=== PATIENT | male | born 1935 | race Caucasian/White ===

== ENCOUNTER 2020-03-04 17:26 | Inpatient (IN) ==
[2020-03-04] MEDS ORDERED: HYDROmorphone 2 MG/1 ML VIAL IV STA (18:27)
[2020-03-04] MEDS ORDERED: SODIUM CHLORIDE 0.9% 500 ML IV STA (18:27)
[2020-03-04] MEDS ORDERED: ONDANSETRON 4 MG/2 ML VIAL IV STA (18:27)
[2020-03-04] MEDS ORDERED: KETOROLAC 30 MG/1 ML VIAL IV STA (18:27)
[2020-03-04 18:41] LABS: Basophils % 0.1 % (0.0-0.8); Eosinophils % 0.1 % (0.00-10.9); Hematocrit 42.5 VOL% (42.0-52.0); Hemoglobin 14.8 GM/DL (14.0-18.0); Immature Granulocytes % 0.7 %; Lymphocytes # 0.9 10*3/uL (1.4-4.0); Mean Corpuscular HGB Conc 34.8 GM/DL (32-36); Mean Corpuscular Volume 85.9 FL (87-102); Mean Platelet Volume 10.1 FL (9.6-12.0); Monocytes % 5.4 % (1.7-12.7); Neutrophils % 87.7 % (38.7-73.9); Platelet Count 225 T/CUMM (130-400); Red Blood Count 4.95 MC/CUMM (3.8-5.5); Red Cell Distribution Width 12.6 % (9.3-17.3); White Blood Count 14.9 T/CUMM (4-12)
[2020-03-04 19:03] LABS: Albumin 4.3 G/DL (3.4-5.0); Bilirubin,Total 0.6 MG/DL (0.2-1.0); Calcium 9.6 MG/DL (8.5-10.1); Osmolality,Calculated 274.1 MOS/KG (273-304); Total Protein 7.7 G/DL (6.4-8.3)
[2020-03-04 19:29] LABS: PT Patient Result 10.9 SECS (9.8-11.9)
[2020-03-04 20:20] LABS: Bilirubin,Urine Negative (Negative); Blood, Urine Negative (Negative); Glucose,Urine (UA) Negative (Negative); Ketones,Urine 5 mg/dL (Negative); Mucus,Urine Occasional /LPF (Occasional); Nitrite,Urine Negative (Negative); Protein,Urine 30 MG/DL; RBC,Urine 2 /HPF (0-4); Urine Appearance CLEAR (Clear); Urine Color Yellow (Yellow); Urine Specific Gravity 1.014 (1.001-1.035); Urine Urobilinogen < 2.0 EU/DL (0.2-1.0)
[2020-03-04] MEDS ORDERED: ACETAMINOPHEN 325 MG TABLET PO PRN (22:19)
[2020-03-04] MEDS ORDERED: HYDROmorphone 2 MG/1 ML VIAL IV PRN (22:19)
[2020-03-04] MEDS ORDERED: ONDANSETRON 4 MG/2 ML VIAL IV PRN (22:19)
[2020-03-04] MEDS: SODIUM CHLORIDE 0.9% 1,000 ML IV SCH (22:45)
[2020-03-05] MEDS ORDERED: ceFAZolin 2,000 MG in PREMIX 1 EACH IV ONE ×2 (06:00→07:05)
[2020-03-05 06:01] LABS: Basophils % 0.2 % (0.0-0.8); Eosinophils % 0.1 % (0.00-10.9); Hemoglobin 13.5 GM/DL (14.0-18.0); Immature Granulocytes % 0.4 %; Immature Granulocytes Absolute 0.05 #; Lymphocytes # 1.5 10*3/uL (1.4-4.0); Lymphocytes % 12.7 % (21.2-54.2); Mean Corpuscular HGB Conc 34.6 GM/DL (32-36); Mean Corpuscular Volume 86.7 FL (87-102); Mean Platelet Volume 10.6 FL (9.6-12.0); Monocytes % 10.7 % (1.7-12.7); Neutrophils % 75.9 % (38.7-73.9); Platelet Count 205 T/CUMM (130-400); Red Cell Distribution Width 12.7 % (9.3-17.3); White Blood Count 11.5 T/CUMM (4-12)
[2020-03-05 06:29] LABS: Albumin 3.7 G/DL (3.4-5.0); Bilirubin,Total 1.1 MG/DL (0.2-1.0); Calcium 8.9 MG/DL (8.5-10.1); Osmolality,Calculated 271.8 MOS/KG (273-304); Total Protein 6.5 G/DL (6.4-8.3)
[2020-03-05] MEDS ORDERED: amLODIPine 5 MG TABLET PO ONE (07:32)
[2020-03-05] MEDS ORDERED: ENALAPRIL 10 MG TABLET PO ONE (07:33)
[2020-03-05] MEDS ORDERED: ENOXAPARIN 40 MG/0.4 ML SYRINGE SUBCUT SCH (08:00)
[2020-03-05] MEDS ORDERED: OLOPATADINE 0.7% BOTH EYES SCH (09:00)
[2020-03-05] MEDS ORDERED: ROPIVACAINE 0.5% 30 ML VIAL ONE (09:38)
[2020-03-05] MEDS ORDERED: MORPHINE 4 MG/1 ML VIAL IV PRN ×2 (09:42→10:00)
[2020-03-05] MEDS ORDERED: LACTULOSE 20 GM/30 ML UDCUP PO PRN (09:42)
[2020-03-05] MEDS ORDERED: BISACODYL 10 MG SUPP RECTAL PRN (09:42)
[2020-03-05] MEDS ORDERED: diphenhydrAMINE CAP 25 MG CAPSULE PO PRN (09:42)
[2020-03-05] MEDS ORDERED: TEMAZEPAM 7.5 MG CAPSULE PO PRN (09:42)
[2020-03-05] MEDS ORDERED: PROMETHAZINE 25 MG/1 ML VIAL IM PRN (09:42)
[2020-03-05] MEDS ORDERED: MIDAZOLAM 2 MG/2 ML VIAL ONE (10:11)
[2020-03-05] MEDS ORDERED: LIDOCAINE 2% 5 ML VIAL ONE (10:13)
[2020-03-05] MEDS ORDERED: PHENYLEPHRINE DRIP 20 MG/250 ML PREMIX IV ONE (10:13)
[2020-03-05] MEDS ORDERED: propofoL 200 MG/20 ML VIAL IV ONE (10:13)
[2020-03-05] MEDS ORDERED: KETAMINE 500 MG/10 ML VIAL ONE (10:14)
[2020-03-05] MEDS ORDERED: fentaNYL 100 MCG/2 ML VIAL ONE (10:14)
[2020-03-05] MEDS ORDERED: ePHEDrine 50 MG/ML VIAL ONE (10:15)
[2020-03-05] MEDS ORDERED: ACETAMINOPHEN 1,000 MG/100 ML VIAL IV ONE (10:15)
[2020-03-05] MEDS ORDERED: ONDANSETRON 4 MG/2 ML VIAL ONE (10:15)
[2020-03-05] MEDS ORDERED: LACTATED RINGERS 1,000 ML IV ONE (10:15)
[2020-03-05] MEDS ORDERED: TRANEXAMIC ACID 1,000 MG/10 ML VIAL ONE (10:15)
[2020-03-05] MEDS ORDERED: KETOROLAC 30 MG/1 ML VIAL ONE (10:15)
[2020-03-05 10:32] LABS: Bilirubin,Urine Negative (Negative); Blood, Urine Small mg/dL (Negative); Glucose,Urine (UA) Negative (Negative); Hyaline Casts,Urine 1 /LPF (0-3); Ketones,Urine 5 mg/dL (Negative); Mucus,Urine Occasional /LPF (Occasional); Nitrite,Urine Negative (Negative); Protein,Urine Negative; RBC,Urine 16 /HPF (0-4); Squamous Epithelial Cell,Urine Occasional /HPF (0-10); Urine Appearance CLEAR (Clear); Urine Color Yellow (Yellow); Urine Urobilinogen < 2.0 EU/DL (0.2-1.0); WBC,Urine 3 /HPF (0-6)
[2020-03-05] MEDS: BRIMONIDINE 0.1% OPH SOLN 5 ML BOTTLE BOTH EYES SCH ×2 (13:01→21:40)
[2020-03-05] MEDS: SODIUM CHLORIDE 0.9% 1,000 ML IV SCH ×2 (13:01→18:10)
[2020-03-05] MEDS: ENALAPRIL 10 MG TABLET PO SCH ×2 (13:02→13:21)
[2020-03-05] MEDS: ASPIRIN EC 81 MG TABLET PO SCH (13:02)
[2020-03-05] MEDS: amLODIPine 5 MG TABLET PO SCH (13:20)
[2020-03-05] MEDS: ceFAZolin 2,000 MG in PREMIX 1 EACH IV SCH (17:07)
[2020-03-05] MEDS ORDERED: BRIMONIDINE 0.1% OPH SOLN 5 ML BOTTLE BOTH EYES SCH (21:00)
[2020-03-05] MEDS: LATANOPROST 0.005% OPH SOLN 2.5 ML BOTTLE BOTH EYES SCH (21:32)
[2020-03-05] MEDS: DOCUSATE SODIUM 100 MG CAPSULE PO SCH (21:33)
[2020-03-06] MEDS: ceFAZolin 2,000 MG in PREMIX 1 EACH IV SCH (01:57)
[2020-03-06 06:24] LABS: Basophils % 0.2 % (0.0-0.8); Eosinophils % 0.3 % (0.00-10.9); Hematocrit 35.9 VOL% (42.0-52.0); Hemoglobin 12.3 GM/DL (14.0-18.0); Immature Granulocytes % 0.5 %; Immature Granulocytes Absolute 0.06 #; Lymphocytes # 1.3 10*3/uL (1.4-4.0); Lymphocytes % 10.5 % (21.2-54.2); Mean Corpuscular HGB Conc 34.3 GM/DL (32-36); Mean Corpuscular Volume 87.3 FL (87-102); Mean Platelet Volume 10.2 FL (9.6-12.0); Neutrophils % 77.5 % (38.7-73.9); Platelet Count 167 T/CUMM (130-400); Red Blood Count 4.11 MC/CUMM (3.8-5.5); Red Cell Distribution Width 12.8 % (9.3-17.3); White Blood Count 12.3 T/CUMM (4-12)
[2020-03-06 06:38] LABS: Calcium 8.3 MG/DL (8.5-10.1); Osmolality,Calculated 267.2 MOS/KG (273-304)
[2020-03-06] MEDS: BRIMONIDINE 0.1% OPH SOLN 5 ML BOTTLE BOTH EYES SCH ×2 (10:56→23:04)
[2020-03-06] MEDS: ENALAPRIL 10 MG TABLET PO SCH (10:57)
[2020-03-06] MEDS: amLODIPine 5 MG TABLET PO SCH (10:57)
[2020-03-06] MEDS: ASPIRIN EC 81 MG TABLET PO SCH (10:57)
[2020-03-06] MEDS: DOCUSATE SODIUM 100 MG CAPSULE PO SCH ×2 (10:58→21:18)
[2020-03-06] MEDS: SODIUM CHLORIDE 0.9% 1,000 ML IV SCH (14:18)
[2020-03-06] MEDS: LATANOPROST 0.005% OPH SOLN 2.5 ML BOTTLE BOTH EYES SCH (21:17)
[2020-03-06] MEDS: FONDAPARINUX 2.5 MG/0.5 ML SYRINGE SUBCUT SCH (21:18)
[2020-03-07 05:22] LABS: Basophils % 0.3 % (0.0-0.8); Eosinophils # 0.2 10*3/uL (0.0-0.87); Eosinophils % 1.8 % (0.00-10.9); Hematocrit 34.4 VOL% (42.0-52.0); Hemoglobin 12.1 GM/DL (14.0-18.0); Immature Granulocytes % 0.6 %; Immature Granulocytes Absolute 0.06 #; Lymphocytes # 1.3 10*3/uL (1.4-4.0); Mean Corpuscular HGB Conc 35.2 GM/DL (32-36); Mean Corpuscular Volume 86.4 FL (87-102); Mean Platelet Volume 10.5 FL (9.6-12.0); Monocytes % 12.3 % (1.7-12.7); Platelet Count 168 T/CUMM (130-400); Red Blood Count 3.98 MC/CUMM (3.8-5.5); Red Cell Distribution Width 12.5 % (9.3-17.3); White Blood Count 10.3 T/CUMM (4-12)
[2020-03-07] MEDS: ASPIRIN EC 81 MG TABLET PO SCH (08:47)
[2020-03-07] MEDS: BRIMONIDINE 0.1% OPH SOLN 5 ML BOTTLE BOTH EYES SCH ×2 (08:47→21:56)
[2020-03-07] MEDS: ENALAPRIL 10 MG TABLET PO SCH (08:48)
[2020-03-07] MEDS: DOCUSATE SODIUM 100 MG CAPSULE PO SCH ×2 (08:48→21:37)
[2020-03-07] MEDS: amLODIPine 5 MG TABLET PO SCH (08:48)
[2020-03-07] MEDS: FONDAPARINUX 2.5 MG/0.5 ML SYRINGE SUBCUT SCH (21:37)
[2020-03-07] MEDS: LATANOPROST 0.005% OPH SOLN 2.5 ML BOTTLE BOTH EYES SCH (21:37)
[2020-03-07] MEDS: MAGNESIUM HYDROXIDE SUSP 30 ML UDCUP PO PRN (21:37)
[2020-03-08] MEDS: MAGNESIUM HYDROXIDE SUSP 30 ML UDCUP PO PRN (04:58)
[2020-03-08 05:26] LABS: Basophils % 0.2 % (0.0-0.8); Eosinophils # 0.2 10*3/uL (0.0-0.87); Eosinophils % 2.4 % (0.00-10.9); Hematocrit 37.7 VOL% (42.0-52.0); Immature Granulocytes % 0.3 %; Immature Granulocytes Absolute 0.03 #; Lymphocytes # 1.7 10*3/uL (1.4-4.0); Lymphocytes % 18.8 % (21.2-54.2); Mean Corpuscular HGB Conc 34.5 GM/DL (32-36); Mean Corpuscular Volume 86.1 FL (87-102); Mean Platelet Volume 10.3 FL (9.6-12.0); Monocytes % 11.6 % (1.7-12.7); Neutrophils % 66.7 % (38.7-73.9); Platelet Count 220 T/CUMM (130-400); Red Blood Count 4.38 MC/CUMM (3.8-5.5); Red Cell Distribution Width 12.3 % (9.3-17.3)
[2020-03-08] MEDS: DOCUSATE SODIUM 100 MG CAPSULE PO SCH (09:27)
[2020-03-08] MEDS: ENALAPRIL 10 MG TABLET PO SCH (09:27)
[2020-03-08] MEDS: BRIMONIDINE 0.1% OPH SOLN 5 ML BOTTLE BOTH EYES SCH (09:27)
[2020-03-08] MEDS: amLODIPine 5 MG TABLET PO SCH (09:27)
[2020-03-08] MEDS: ASPIRIN EC 81 MG TABLET PO SCH (09:27)
[2020-03-08 11:32] VITALS: BP 162/81
== END 2020-03-08 14:23 | disposition swing bed (61) | DRG 522 ==
LOC: N.ED 17:26 → N.EDINP 19:21 → N.3E 21:50
PROVIDERS: ADMIT Orthopaedic Surgery; ATTEND Orthopaedic Surgery